=== PATIENT | female | born 1985 ===

== ENCOUNTER 2018-02-04 05:44 | Inpatient (IN) | payer MEDICAID ==
[2018-02-04] MEDS ORDERED: Ondansetron 4 MG/2 ML SDV IVPUSH PRN ×3 (06:34→22:02)
[2018-02-04] MEDS ORDERED: Lactated Ringers 1,000 ML IV SCH ×3 (06:45→20:45)
[2018-02-04] MEDS: Terbutaline 1 MG/ML SDV SUBCUT SCH ×2 (08:18→12:17)
[2018-02-04] MEDS ORDERED: cefOXitin 2 GM in Premix Bag 1 BAG IV ONE (09:17)
--- NOTE | 2018-02-04 10:46 | PCM.SN ---
- Free Text/Narrative Note: 32-year-old PATRICIA 02/24/18 estimated gestational age 37 weeks 1 day. Patient presented to labor and delivery complaining of contractions and nausea and vomiting. Initial examination cervix was unchanged from exam in the clinic /soft/posterior/vertex -3. Patient given IV hydration by mouth hydration will give regular diet. Urinalysis revealed many bacteria given Mefoxin 2 g IV and will continue him Macrobid 100 mg by mouth twice a day at home for 10 days prescription sent to [facility] nonstress test reactive cervix has remained unchanged contractions have spaced out. Patient lives an Outing will be observed in labor and delivery for short while longer in an attempt to avoid her having to return immediately upon getting home. Patient to keep her appointment with Dr. Hines next week and with me the following week. Return to labor and delivery if any problems or concerns. Z3A.37 UTI O23.43 NST 53795 L&D visit [id number]
[2018-02-04] MEDS: Phenazopyridine 95 MG Tab PO SCH (11:13)
--- NOTE | 2018-02-04 14:55 | US ---
Biophysical profile: Multiple real-time images were obtained. Comparison: Previous obstetrical ultrasounds are available, most recent exam of 10/07/17. Dates: LMP: LMP given as 05/20/17, PATRICIA 02/24/18, gestational age 37 weeks 1 day Current ultrasound: PATRICIA 02/26/18, gestational age 36 weeks 6 day Earliest ultrasound (07/28/17): PATRICIA 02/19/18, gestational age 37 weeks 6 days presentation: Cephalic Placenta: Anterior Amniotic fluid: BILL 14.6 cm Measurements: BPD: 9.10 cm - 36 weeks 6 days Head circumference: 31.58 cm - 35 weeks 3 days Abdominal circumference: 33.74 cm - 37 weeks 5 days Femur length: 7.26 cm - 37 weeks 1 day Estimated weight: 3102 g (6 lbs. 15 oz.), estimated weight 46th percentile for age by LMP Heart rate: 147 BPM Cervical length: Not seen, not measured Growth curves: None were prepared Biophysical profile: movement 2, breathing movement 0, tone 2, amniotic fluid volume 2 Impression: 1. Single intrauterine fetus in cephalic in presentation. Dates as noted above. 2. 6 out of 8 on biophysical profile. Diagnostic code #5
--- NOTE | 2018-02-04 15:19 | PCM.LDHP ---
L&D History of Present Illness - General Date of Service: 02/04/18 Admit Problem/Dx: Patient Status Order with Admit Dx/Problem 02/04/18 06:35 Patient Status [ADT] Routine Admission Diagnosis/Problem Admission Diagnosis/Problem Source of Information: Patient History Limitations: Reports: No Limitations - History of Present Illness Introduction:: 32 y/o PATRICIA 02/24/2018 EGA 37w1d presented to L&D early this morning c/o contractions. Cervix was unchanged from exam in the clinic earlier this week when seen on 02/03/18 cervix is 1 cm dilated 20% effaced soft posterior vertex - 3 station. Patient had initially what I read as reactive nonstress test, patient lives an [place] as precaution patient On extended OB check. Later in the morning and early afternoon patient had several decelerations that lasted between 3-5 minutes still with good [id number] variability and an occasional variable deceleration. Biophysical profile was ordered and returned as 6 out of 8 with 0 for breathing movement. I talked with Dr. Gage, and we reviewed her OB trace view tracings. Patient continues to have contractions every 8-10 minutes, decreased in frequency from when patient presented to labor and delivery. The urinalysis report revealed many bacteria. Patient was treated with Mefoxin intravenously. And will now be placed on Macrobid 100 mg by mouth twice a day her group B strep is negative. Dr. Gage and I both agreed that patient should remain in labor and delivery with monitoring IV hydration which was begun on patient presented. Regular diet and reevaluate patient as indicated. Cervix has remained unchanged at 1 cm, 20% effaced, soft, posterior, vertex -3. Blood pressure on clinic visit 02/03/18 was 106/68. Blood type is O+, antibody screen negative. On 07/28/17 hemoglobin hematocrit 12.5/36.0. Platelets 270,000. Pap smear -. Rubella titer immune, serology nonreactive, urine culture no growth after 2 days. Hepatitis B surface antigen and HIV were negative. Initial ultrasound 07/28 at 10 weeks 4 days estimated gestational age placed estimated due date of . The original last menstrual period PATRICIA of 02/24/18 has been kept at this time. Ultrasound obtained on 10/07/17 at 21 weeks 0 days estimated gestational age mobile presentation and anterior placenta previa. pola 11.8 three-vessel cord present. gc and chlamydia were negative on 07/28/17. on 12/14/17 hemoglobin hematocrit 11.5/33.9 platelets 237,001 hour ob glucose screen 141. three-hour glucose tolerance test obtained on 12/20/17 fasting of 77 1 hour 98-95 3 hour of 87. group b strep negative on 01/27/18. After considering the evaluation and discussing patient, patient will be placed on observation status continuous external monitoring and IV hydration regular diet and reevaluation as indicated. I talked with patient's and patient's mother and all in agreement with staying at the hospital and they understand that Dr. Baker assuming call. Improves with: Reports: None Worsens with: Reports: None Associated Symptoms: Reports: N - Related Data Allergies/Adverse Reactions: Allergies Allergy/AdvReac Type Severity Reaction Status Date / Time No Known Allergies Allergy Verified 02/04/18 06:34 Home Medications: Home Meds Nitrofurantoin Monohyd/M-Cryst [Macrobid 100 mg Capsule] 100 mg PO BID #20 capsule 02/04/18 [Rx] Past Medical History : 2 Para: 0 (0010) H&P Review of Systems - Review of Systems: Review Of Systems: See Below General: Reports: No Symptoms HEENT: Reports: No Symptoms Pulmonary: Reports: No Symptoms Cardiovascular: Reports: No Symptoms Gastrointestinal: Reports: No Symptoms Genitourinary: Reports: Dysuria, Frequency, Pain (Sharp stabbing pain with urination.) Musculoskeletal: Reports: No Symptoms Skin: Reports: No Symptoms Psychiatric: Reports: No Symptoms Neurological: Reports: No Symptoms Hematologic/Lymphatic: Reports: No Symptoms Immunologic: Reports: No Symptoms L&D Exam - Exam Exam: See Below - Vital Signs Vital Signs: Last Vital Signs Temp 97.8 F 02/04/18 06:35 Pulse 85 02/04/18 06:35 Resp 15 02/04/18 06:35 BP 117/85 02/04/18 06:35 Pulse Ox Weight: 177 lb - OB Specific Fundal Height In cm: 37 Contraction Duration (sec): 60-120 Contraction Frequency (min): 5-10 Contraction Intensity: Mild to Moderate Movement: Active Heart Tones: Present Heart Tones per Min: 140 Heart Rate (FHR) Variability: Moderate (6-25 bmp) Presentation: Vertex - Kendall Score Kendall Score Cervix Position: Posterior Kendall Score Consistency: Soft Kendall Score Effacement: 0-30% Kendall Score Dilation: 1-2 cm Kendall Score 's Station: -3 Kendall Score Total: 3 - Exam General: Alert, Oriented HEENT: Conjunctiva Clear, Mucosa Moist & [place], PERRLA Neck: Supple, Trachea Midline Lungs: Clear to Auscultation, Normal Respiratory Effort Cardiovascular: Regular Rate, Regular Rhythm GI/Abdominal Exam: Normal Bowel Sounds, Soft, Non-Tender Genitourinary: Normal external exam, Normal bimanual exam Extremities: Normal Inspection, Normal Range of Motion, Non-Tender, No Pedal Edema, Normal Capillary Refill Skin: Warm, Dry, Intact Neurological: Cranial Nerves Intact, Reflexes Equal Bilateral Psychiatric: Alert, Normal Affect, Normal Mood - Patient Data Lab Results Last 24 hrs: Laboratory Results - last 24 hr 02/04/18 02/04/18 Range/Units 06:50 06:50 WBC 22.12 H (3.98-10.04) K/mm3 RBC 4.36 (3.98-5.22) M/mm3 Hgb 13.2 (11.2-15.7) gm/L Hct 38.0 (34.1-44.9) % MCV 87.2 (79.4-94.8) fl MCH 30.3 (25.6-32.2) pg MCHC 34.7 (32.2-35.5) g/dl RDW Std Deviation 38.8 (36.4-46.3) fL Plt Count 252 (182-369) K/mm3 MPV 10.6 (9.4-12.3) fl Neut % (Auto) 89.3 H (34.0-71.1) % Lymph % (Auto) 6.8 L (19.3-51.7) % [place] % (Auto) 3.3 L (4.7-12.5) % Eos % (Auto) 0 L (0.7-5.8) Baso % (Auto) 0.1 (0.1-1.2) % Neut # (Auto) 19.76 H (1.56-6.13) K/mm3 Lymph # (Auto) 1.51 (1.18-3.74) K/mm3 [place] # (Auto) 0.73 H (0.24-0.36) K/mm3 Eos # (Auto) 0.00 L (0.04-0.36) K/mm3 Baso # (Auto) 0.02 (0.01-0.08) K/mm3 Manual Slide Review Abnormal smear Urine Color Yellow (Yellow) Urine Appearance Clear (Clear) Urine pH 7.0 (5.0-8.0) Ur Specific [place] 1.025 (1.005-1.030) Urine Protein 1+ H (Negative) Urine Glucose (UA) Negative (Negative) Urine Ketones 1+ H (Negative) Urine Occult Blood Negative (Negative) Urine Nitrite Negative (Negative) Urine Bilirubin Negative (Negative) Urine Urobilinogen 0.2 (0.2-1.0) Ur Leukocyte Esterase 1+ H (Negative) Urine RBC Not seen (0-5) /hpf Urine WBC 0-5 (0-5) /hpf Ur Epithelial Cells 0-5 (0-5) /hpf Urine Bacteria Many H (FEW) /hpf Urine Mucus Few (FEW) /hpf Result Diagrams: 02/04/18 06:50 - Problem List (1) 37 weeks gestation of SNOMED Code(s): 54183364 ICD Code: Z3A.37 - 37 WEEKS GESTATION OF Status: Acute Current Visit: Yes (2) UTI (urinary tract infection) in in third trimester SNOMED Code(s): 119857066, 889080744 ICD Code: O23.43 - UNSP INFCT OF URINARY TRACT IN , THIRD TRIMESTER Status: Acute Current Visit: Yes (3) Irregular contractions SNOMED Code(s): 37644338 ICD Code: O62.2 - OTHER UTERINE INERTIA Status: Acute Current Visit: Yes Problem List Initiated/Reviewed/Updated: No Orders Last 24hrs: Active Orders 24 hr Category Date Time Status Patient Status [ADT] Routine ADT 02/04/18 06:35 Active Non Stress Test [RC] PER UNIT ROUTINE Care 02/04/18 06:35 Active Ready for Discharge [RC] PER UNIT ROUTINE Care 02/04/18 12:20 Active Vital Signs [RC] PER UNIT ROUTINE Care 02/04/18 06:35 Active Regular Diet [DIET] Diet 05/11/18 Lunch Active CULTURE URINE [RM] Routine Lab 02/04/18 06:50 Received Lactated Ringers [Ringers, Lactated] 1,000 ml Med 02/04/18 07:45 Active IV .ONCE Ondansetron [Zofran] Med 02/04/18 06:34 Active 4 mg IVPUSH Q4H PRN Phenazopyridine [Urinary Pain Relief] Med 02/04/18 13:00 Active 190 mg PO TIDPC Resuscitation Status Routine Resus Stat 02/04/18 06:34 Ordered Medication Orders Lactated Ringer's (Ringers, Lactated) 1,000 mls @ 125 mls/hr IV .ONCE GASTON Last Infusion: 02/04/18 12:15 Dose: 0 mls/hr Admin: 02/04/18 09:03 Dose: 125 mls/hr Ondansetron HCl (Zofran) 4 mg IVPUSH Q4H PRN PRN Reason: Nausea/Vomiting Phenazopyridine HCl (Urinary Pain Relief) 190 mg PO TIDPC G[place]ON Last Admin: 02/04/18 11:13 Dose: 190 mg Assessment/Plan Comment:: Keep patient in labor and delivery antepartum on observation status.
[2018-02-04] MEDS: Lactated Ringers 1,000 ML IV SCH ×2 (16:00→19:58)
--- NOTE | 2018-02-04 17:27 | PCM.SN ---
- Free Text/Narrative Note: S- Patient increasingly uncomfortable with contractions. Some bloody show. O- overall reassuring FHT however two additional 1 minute decelerations FHT 140s, reactive Myton - q 4-10 minutes Cervix very soft and posterior, unable to fully reach to assess dilation Speculum placed Garcia bulb passed through cervix without difficulty Inflated to 50 mL A- Given contractions and occasional spontaneous decelerations no need for immediate however would recommend induction at this time. P- garcia bulb placed. Will defer cytotec or pitocin at this time. Once garcia out will initiate pitocin.
[2018-02-04] MEDS ORDERED: Bupivacaine 0.25% 10 ML SDV ONE (18:00)
[2018-02-04] MEDS ORDERED: ePHEDrine 50 MG/ML SDV IVPUSH PRN ×2 (19:13→22:08)
[2018-02-04] MEDS ORDERED: fentaNYL 100 MCG/2 ML SDV EPIDUR PRN (19:13)
[2018-02-04] MEDS ORDERED: diphenhydrAMINE 50 MG/ML SDV IVPUSH PRN ×3 (19:13→22:08)
[2018-02-04] MEDS ORDERED: Bupivacaine/fentaNYL/NS 100 ML Bag EPIDUR SCH (19:15)
--- NOTE | 2018-02-04 19:30 | PCM.SN ---
- Free Text/Narrative Note: S- Called by nurse for deceleration to the 90s. By my arrival has recovered. Luke bulb removed. Pt more uncomfortable with contractions. O- Afebrile FHT- 140s, good variability, occasional decelerations but not improved [place] - q3-5 minutes 4/80/-2 AROM thick meconium A - More uncomfortable. Occasional decelerations with good recovery p - Patient desires epidural. Will get that placed. If good cervical change and no significant decelerations can proceed with induction. Otherwise patient understands possibility of need for
[2018-02-04] MEDS ORDERED: Oxytocin/Lactated Ringers 10 UNIT/1,000 ML BAG IV ONE (20:06)
--- NOTE | 2018-02-04 20:14 | PCM.PREANE ---
Preanesthetic Assessment - Procedure Proposed Procedure: PINO - Anesthesia/Transfusion/Family Hx Anesthesia History: Prior Anesthesia Without Reaction Family History of Anesthesia Reaction: No Transfusion History: No Prior Transfusion(s) Intubation History: Unknown - Review of Systems General: No Symptoms Pulmonary: No Symptoms Cardiovascular: No Symptoms Gastrointestinal: No Symptoms Neurological: No Symptoms Other: Reports: Thyroid Problems (hypothyroidism) - Physical Assessment NPO Status Date: 02/04/18 NPO Status Time: 17:00 Pulse: 91 O2 Sat by Pulse Oximetry: 98 Respiratory Rate: 18 Vital Signs: Last Vital Signs Temp 36.9 C 02/04/18 16:50 Pulse 91 02/04/18 16:30 Resp 18 02/04/18 16:50 BP 119/74 02/04/18 16:50 Pulse Ox 98 02/04/18 16:50 Height: 1.57 m Weight: 80.286 kg ASA Class: 2 Mental Status: Alert & Oriented x3 Airway Class: Mallampati = 1 Dentition: Reports: Normal Dentition Thyro-Mental Finger Breadths: 3 Mouth Opening Finger Breadths: 3 ROM/Head Extension: Full Lungs: Clear to Auscultation, Normal Respiratory Effort Cardiovascular: Regular Rate, Regular Rhythm - Lab Values: Laboratory Last Values WBC 22.12 K/mm3 (3.98-10.04) H 02/04/18 06:50 RBC 4.36 M/mm3 (3.98-5.22) 02/04/18 06:50 Hgb 13.2 gm/L (11.2-15.7) 02/04/18 06:50 Hct 38.0 % (34.1-44.9) 02/04/18 06:50 MCV 87.2 fl (79.4-94.8) 02/04/18 06:50 MCH 30.3 pg (25.6-32.2) 02/04/18 06:50 MCHC 34.7 g/dl (32.2-35.5) 02/04/18 06:50 RDW Std Deviation 38.8 fL (36.4-46.3) 02/04/18 06:50 Plt Count 252 K/mm3 (182-369) 02/04/18 06:50 MPV 10.6 fl (9.4-12.3) 02/04/18 06:50 Neut % (Auto) 89.3 % (34.0-71.1) H 02/04/18 06:50 Lymph % (Auto) 6.8 % (19.3-51.7) L 02/04/18 06:50 [place] % (Auto) 3.3 % (4.7-12.5) L 02/04/18 06:50 Eos % (Auto) 0 (0.7-5.8) L 02/04/18 06:50 Baso % (Auto) 0.1 % (0.1-1.2) 02/04/18 06:50 Neut # (Auto) 19.76 K/mm3 (1.56-6.13) H 02/04/18 06:50 Lymph # (Auto) 1.51 K/mm3 (1.18-3.74) 02/04/18 06:50 [place] # (Auto) 0.73 K/mm3 (0.24-0.36) H 02/04/18 06:50 Eos # (Auto) 0.00 K/mm3 (0.04-0.36) L 02/04/18 06:50 Baso # (Auto) 0.02 K/mm3 (0.01-0.08) 02/04/18 06:50 Manual Slide Review Abnormal smear 02/04/18 06:50 Urine Color Yellow (Yellow) 02/04/18 06:50 Urine Appearance Clear (Clear) 02/04/18 06:50 Urine pH 7.0 (5.0-8.0) 02/04/18 06:50 Ur Specific [place] 1.025 (1.005-1.030) 02/04/18 06:50 Urine Protein 1+ (Negative) H 02/04/18 06:50 Urine Glucose (UA) Negative (Negative) 02/04/18 06:50 Urine Ketones 1+ (Negative) H 02/04/18 06:50 Urine Occult Blood Negative (Negative) 02/04/18 06:50 Urine Nitrite Negative (Negative) 02/04/18 06:50 Urine Bilirubin Negative (Negative) 02/04/18 06:50 Urine Urobilinogen 0.2 (0.2-1.0) 02/04/18 06:50 Ur Leukocyte Esterase 1+ (Negative) H 02/04/18 06:50 Urine RBC Not seen /hpf (0-5) 02/04/18 06:50 Urine WBC 0-5 /hpf (0-5) 02/04/18 06:50 Ur Epithelial Cells 0-5 /hpf (0-5) 02/04/18 06:50 Urine Bacteria Many /hpf (FEW) H 02/04/18 06:50 Urine Mucus Few /hpf (FEW) 02/04/18 06:50 Blood Type O POSITIVE 02/04/18 06:50 Gel Antibody Screen Negative 02/04/18 06:50 - Allergies Allergies/Adverse Reactions: Allergies Allergy/AdvReac Type Severity Reaction Status Date / Time No Known Allergies Allergy Verified 02/04/18 06:34 - Blood Blood Available: No Product(s) Available: None - Anesthesia Plan Pre-Op Medication Ordered: None - Acknowledgements Anesthesia Type Planned: Epidural Pt an Appropriate Candidate for the Planned Anesthesia: Yes Alternatives and Risks of Anesthesia Discussed w Pt/Guardian: Yes Pt/Guardian Understands and Agrees with Anesthesia Plan: Yes PreAnesthesia Questionnaire FELLER HAND History: Reports: Endocrine/Metabolic History: Reports: Hypothyroidism - Past Surgical History Female Surgical History: Reports: Breast Reconstruction, D&C - SUBSTANCE USE Smoking Status *Q: Never Smoker Second Hand Smoke Exposure: No Recreational Drug Use History: No - HOME MEDS Home Medications: Home Meds Levothyroxine 75 mcg PO ACBREAKFAST 02/04/18 [History] Nitrofurantoin Monohyd/M-Cryst [Macrobid 100 mg Capsule] 100 mg PO BID #20 capsule 02/04/18 [Rx] - CURRENT (IN HOUSE) MEDS Current Meds: Current Medications Diphenhydramine HCl (Benadryl) 25 mg IVPUSH Q6H PRN PRN Reason: Pruritis Ephedrine Sulfate (Ephedrine Sulfate) 5 mg IVPUSH ASDIRECTED PRN PRN Reason: Hypotension Fentanyl (Sublimaze) 100 mcg EPIDUR Q3H PRN PRN Reason: Pain Last Admin: 02/04/18 19:45 Dose: 100 mcg Fentanyl/Bupivacaine HCl (Fentanyl/Bupivacaine/Ns 2 Mcg-0.125% 100 Ml) 100 ml EPIDUR ASDIRECTED G[place]ON Last Admin: 02/04/18 19:46 Dose: 100 ml Hydroxyzine HCl (Atarax) 25 mg PO BEDTIME G[place]ON Lactated Ringer's (Ringers, Lactated) 1,000 mls @ 125 mls/hr IV ASDIRECTED [facility] Last Admin: 02/04/18 19:58 Dose: 125 mls/hr Nitrofurantoin Macrocrystals (Macrobid) 100 mg PO BID [facility] Ondansetron HCl (Zofran) 4 mg IVPUSH Q4H PRN PRN Reason: Nausea/Vomiting Ondansetron HCl (Zofran) 4 mg IVPUSH ONETIME PRN PRN Reason: Nausea/Vomiting Discontinued Medications Lactated Ringer's (Ringers, Lactated) 1,000 mls @ 500 mls/hr IV ASDIRECTED [facility] Stop: 02/04/18 08:44 Last Infusion: 02/04/18 12:15 Dose: Infused Lactated Ringer's (Ringers, Lactated) 1,000 mls @ 125 mls/hr IV .ONCE [facility] Last Infusion: 02/04/18 12:15 Dose: Infused Cefoxitin Sodium 2 gm/ Premix 50 mls @ 100 mls/hr IV ONETIME ONE Stop: 02/04/18 09:46 Last Infusion: 02/04/18 12:16 Dose: Infused Oxytocin/Lactated Ringer's (Pitocin In Lr 10 Units/1,000 Ml) Confirm Administered Dose 10 unit in 1,000 mls @ as directed IV .STK-MED ONE Stop: 02/04/18 20:07 Phenazopyridine HCl (Urinary Pain Relief) 190 mg PO TIDPC [facility] Last Admin: 02/04/18 11:13 Dose: 190 mg Terbutaline Sulfate (Brethine) 0.25 mg SUBCUT Q30M [facility] Stop: 02/04/18 07:46 Last Admin: 02/04/18 12:17 Dose: Not Given
[2018-02-04] MEDS ORDERED: Oxytocin/Lactated Ringers 10 UNIT/1,000 ML BAG IV SCH (20:15)
[2018-02-04] MEDS ORDERED: Oxytocin 10 Units/1 ML SDV ONE (20:43)
[2018-02-04] MEDS ORDERED: Ondansetron 4 MG/2 ML SDV ONE (20:43)
[2018-02-04] MEDS ORDERED: ceFAZolin 1 GM Vial ONE (20:44)
[2018-02-04] MEDS ORDERED: Sodium Chloride 0.9% 10 ML Syringe FLUSH PRN (20:44)
[2018-02-04] MEDS ORDERED: Lidocaine 2% with EPINEPHrine 1:200,000 20 ML SDV ONE (20:44)
[2018-02-04] MEDS ORDERED: Sodium Bicarbonate 8.4% 50 MEQ/50 ML SDV ONE (20:44)
[2018-02-04] MEDS ORDERED: Metoclopramide 10 MG/2 ML SDV IVPUSH ONE (20:44)
[2018-02-04] MEDS ORDERED: Citric Acid/Sodium Citrate Solution 30 ML Cup ONE (20:55)
[2018-02-04] MEDS ORDERED: Citric Acid/Sodium Citrate Solution 30 ML Cup PO ONE (20:56)
[2018-02-04] MEDS ORDERED: hydrOXYzine HCl 25 MG Tab PO SCH (21:00)
[2018-02-04] MEDS ORDERED: Nitrofurantoin Monohydrate/Macrocrystalline 100 MG Cap PO SCH (21:00)
[2018-02-04] MEDS ORDERED: Phenylephrine/Normal Saline 100 MCG/ML 10 ML Syringe ONE (21:13)
[2018-02-04] MEDS ORDERED: Meperidine PF 50 MG/ML Syringe ONE (21:38)
[2018-02-04] MEDS ORDERED: Morphine PF 10 MG/10 ML SDV ONE (21:39)
[2018-02-04] MEDS ORDERED: Ketorolac 30 MG/ML SDV ONE (21:45)
[2018-02-04] MEDS ORDERED: Ketorolac 30 MG/ML SDV IVPUSH SCH (22:00)
--- NOTE | 2018-02-04 22:00 | PCM.POSTAN ---
POST ANESTHESIA ASSESSMENT - MENTAL STATUS Mental Status: Alert, Oriented - VITAL SIGNS Pulse Rate: 95 SaO2: 100 Resp Rate: 17 Blood Pressure: 91/54 Temperature: 37.3 C - RESPIRATORY Respiratory Status: Respiratory Rate WNL, Airway Patent, O2 Saturation Stable, Supplemental Oxygen - CARDIOVASCULAR CV Status: Pulse Rate WNL, Blood Pressure Stable - GASTROINTESTINAL GI Status: No Symptoms - PAIN Pain Score: 0 - POST OP HYDRATION Hydration Status: Adequate & Stable
[2018-02-04] MEDS ORDERED: Meperidine PF 50 MG/ML Syringe IVPUSH PRN (22:02)
[2018-02-04] MEDS ORDERED: fentaNYL 100 MCG/2 ML SDV IVPUSH PRN (22:02)
[2018-02-04] MEDS ORDERED: Acetaminophen/HYDROcodone 325-5 MG Tab PO PRN (22:08)
[2018-02-04] MEDS ORDERED: Dextrose 5%-Lactated Ringers 1,000 ML IV SCH (22:08)
[2018-02-04] MEDS ORDERED: Naloxone 0.4 MG/ML SDV IVPUSH PRN (22:08)
[2018-02-04] MEDS ORDERED: Lanolin 100% Cream 7 GM Tube TOP PRN (22:08)
[2018-02-04] MEDS ORDERED: Docusate Sodium 100 MG Cap PO PRN (22:08)
--- NOTE | 2018-02-04 22:12 | PCM.OPNOTE ---
- General Post-Op/Procedure Note Date of Surgery/Procedure: 02/04/18 Operative Procedure(s): Primary low transverse section Findings: Viable male weight 6 lbs. 14 oz. Apgars 8/9, at 2125; normal uterus tubes and ovaries Pre Op Diagnosis: Nonreassuring monitoring Post-Op Diagnosis: Same Anesthesia Technique: Epidural Primary Surgeon: Shreya Gonzalez Anesthesia Provider: Ahmet Welch Plumbing Installer: Chris Avelar Jr Reason Plumbing Installer Was Necessary: Retraction, patient safety Fluid Replacement, Intraop: 400 Output, Urine Amount: 150 EBL in mLs: 1,000 Drain/Tube Comments:: Luke Complications: None Condition: Good Free Text/Narrative:: Intake & Output 02/04/18 02/04/18 02/04/18 06:59 14:59 22:59 Intake Total 1300 Balance 1300 After more decelerations in setting of thick meconium decision made to proceed to . The patient was taken to the operating room where epidural anesthesia was dosed to surgical levels without difficulty. The patient was prepped and draped in the usual sterile fashion in the dorsal supine position with a leftward tilt. A Pfannenstiel skin incision was made with the scalpel and carried through to the underlying layer of fascia. The fascia was incised in the midline and extended laterally using Suazo scissors. Deanna clamps were used to elevate the superior aspect of the fascial incision, which was elevated , and the underlying rectus muscles were dissected off bluntly and using Suazo scissors. Attention was then turned to the inferior aspect of the fascial incision, which in similar fashion was grasped with Deanna clamps, elevated, and the underlying rectus muscles were dissected off bluntly and using the suazo. The rectus muscles were dissected in the midline. The peritoneum was entered bluntly; this incision was extended superiorly and inferiorly with good visualization of the bladder. The bladder blade was inserted. The vesicouterine peritoneum was identified and entered sharply using Metzenbaum scissors. This incision was extended laterally and the bladder flap was created digitally. The bladder blade was reinserted. The lower uterine segment was incised in a transverse fashion using the scalpel and with digital traction. Clear fluid was noted. The infant was subsequently delivered by flexing the head to the incision. Body and shoulders followed without difficulty. The cord was clamped and cut. The was subsequently handed to the awaiting acid treater whose presence had been requested.. The placenta was delivered spontaneously intact with a three-vessel cord noted. The uterus was exteriorized and cleared of all clots and debris. The uterine incision was repaired in 2 layers using 0 monocryl. Hemostasis was visualized. Hemostasis was visualized bilaterally. The uterus was returned to the abdomen. The uterine incision was reexamined and it was noted to be hemostatic. The pelvis was copiously irrigated. The fascia was closed with 1 PDS suture, and the skin was closed with 3-0 monocryl. Sponge, lap, and instrument counts were correct x2. The patient was stable at the completion of the procedure and was subsequently transferred to the recovery room in stable condition.
[2018-02-04] MEDS ORDERED: Bupivacaine 0.5% 30 ML SDV ONE (22:15)
[2018-02-05] MEDS: Phenazopyridine 95 MG Tab PO SCH (01:26)
[2018-02-05] MEDS: Ketorolac 30 MG/ML SDV IVPUSH SCH ×3 (04:19→15:51)
[2018-02-05] MEDS: Levothyroxine 75 MCG Tab PO SCH (06:08)
--- NOTE | 2018-02-05 07:26 | PCM.PNPP ---
- General Info Date of Service: 02/05/18 Functional Status: Reports: Pain Controlled - Review of Systems General: Reports: No Symptoms HEENT: Reports: No Symptoms Pulmonary: Reports: No Symptoms Cardiovascular: Reports: No Symptoms Gastrointestinal: Reports: No Symptoms Genitourinary: Reports: No Symptoms Musculoskeletal: Reports: No Symptoms Skin: Reports: No Symptoms Neurological: Reports: No Symptoms Psychiatric: Reports: No Symptoms - General Info Date of Service: 02/05/18 - Patient Data Vital Signs - Most Recent: Last Vital Signs Temp 36.4 C 02/05/18 04:31 Pulse 90 02/05/18 04:31 Resp 16 02/05/18 07:00 BP 98/71 02/05/18 04:31 Pulse Ox 98 02/05/18 07:00 Weight - Most Recent: 80.286 kg I&O - Last 24 Hours: Intake & Output 02/04/18 02/05/18 02/05/18 22:59 06:59 14:59 Intake Total 2150 1250 Output Total 275 525 Balance 1875 725 Lab Results - Last 24 Hours: Laboratory Results - last 24 hr 02/04/18 02/04/18 02/04/18 Range/Units 06:50 06:50 06:50 WBC (3.98-10.04) K/mm3 RBC (3.98-5.22) M/mm3 Hgb (11.2-15.7) gm/L Hct (34.1-44.9) % MCV (79.4-94.8) fl MCH (25.6-32.2) pg MCHC (32.2-35.5) g/dl RDW Std Deviation (36.4-46.3) fL Plt Count (182-369) K/mm3 MPV (9.4-12.3) fl Neut % (Auto) (34.0-71.1) % Lymph % (Auto) (19.3-51.7) % S[place]ent % (Auto) (4.7-12.5) % Eos % (Auto) (0.7-5.8) Baso % (Auto) (0.1-1.2) % Neut # (Auto) (1.56-6.13) K/mm3 Lymph # (Auto) (1.18-3.74) K/mm3 S[place]ent # (Auto) (0.24-0.36) K/mm3 Eos # (Auto) (0.04-0.36) K/mm3 Baso # (Auto) (0.01-0.08) K/mm3 Manual Slide Review Abnormal smear Urine RBC Not seen (0-5) /hpf Urine WBC 0-5 (0-5) /hpf Ur Epithelial Cells 0-5 (0-5) /hpf Urine Bacteria Many H (FEW) /hpf Urine Mucus Few (FEW) /hpf Blood Type O POSITIVE Gel Antibody Screen Negative 02/05/18 Range/Units 06:18 WBC 19.02 H (3.98-10.04) K/mm3 RBC 3.28 L (3.98-5.22) M/mm3 Hgb 9.9 L (11.2-15.7) gm/L Hct 29.5 L (34.1-44.9) % MCV 89.9 (79.4-94.8) fl MCH 30.2 (25.6-32.2) pg MCHC 33.6 (32.2-35.5) g/dl RDW Std Deviation 39.0 (36.4-46.3) fL Plt Count 199 (182-369) K/mm3 MPV 10.0 (9.4-12.3) fl Neut % (Auto) 77.3 H (34.0-71.1) % Lymph % (Auto) 11.5 L (19.3-51.7) % Sargent % (Auto) 10.6 (4.7-12.5) % Eos % (Auto) 0.1 L (0.7-5.8) Baso % (Auto) 0.1 (0.1-1.2) % Neut # (Auto) 14.72 H (1.56-6.13) K/mm3 Lymph # (Auto) 2.19 (1.18-3.74) K/mm3 Sargent # (Auto) 2.01 H (0.24-0.36) K/mm3 Eos # (Auto) 0.02 L (0.04-0.36) K/mm3 Baso # (Auto) 0.01 (0.01-0.08) K/mm3 Manual Slide Review Urine RBC (0-5) /hpf Urine WBC (0-5) /hpf Ur Epithelial Cells (0-5) /hpf Urine Bacteria (FEW) /hpf Urine Mucus (FEW) /hpf Blood Type Gel Antibody Screen Med Orders - Current: Current Medications Hydrocodone Bitart/Acetaminophen ([place] 325-5 Mg) 2 tab PO Q6H PRN PRN Reason: Pain (severe 7-10) Hydrocodone Bitart/Acetaminophen ([place] 325-5 Mg) 1 tab PO Q6H PRN PRN Reason: Pain (moderate 4-6) Diphenhydramine HCl (Benadryl) 25 mg IVPUSH Q6H PRN PRN Reason: Pruritis Diphenhydramine HCl (Benadryl) 25 mg IVPUSH Q6H PRN PRN Reason: Itching or Nausea Docusate Sodium (Colace) 100 mg PO Q12H PRN PRN Reason: Constipation Emollient Ointment (Lansinoh Hpa) 0 gm TOP ASDIRECTED PRN PRN Reason: Sore Nipples Ephedrine Sulfate (Ephedrine Sulfate) 5 mg IVPUSH SEECOMMENT PRN PRN Reason: Other Fentanyl (Sublimaze) 50 mcg IVPUSH Q5M PRN PRN Reason: Pain Ibuprofen (Motrin) 600 mg PO Q6H PRN PRN Reason: mild pain or fever Ketorolac Tromethamine (Toradol) 30 mg IVPUSH Q6H [facility] Stop: 02/05/18 16:01 Last Admin: 02/05/18 04:19 Dose: 30 mg Levothyroxine Sodium (Levothyroxine) 75 mcg PO ACBREAKFAST [facility] Last Admin: 02/05/18 06:08 Dose: Not Given Meperidine HCl (Demerol) 12.5 mg IVPUSH ONETIME PRN PRN Reason: Shivering Naloxone HCl (Narcan) 0.1 mg IVPUSH SEECOMMENT PRN PRN Reason: Respiratory Depression Nitrofurantoin Macrocrystals (Macrobid) 100 mg PO BID [facility] Ondansetron HCl (Zofran) 4 mg IVPUSH ONETIME PRN PRN Reason: Nausea/Vomiting Discontinued Medications Bupivacaine HCl (Marcaine 0.5%) Confirm Administered Dose 30 ml .ROUTE .STK-MED ONE Stop: 02/04/18 22:16 Last Admin: 02/04/18 21:22 Dose: 20 ml Cefazolin Sodium (Ancef) Confirm Administered Dose 2 gm .ROUTE .STK-MED ONE Stop: 02/04/18 20:45 Citric Acid/Sodium Citrate (Bicitra Solution) 30 ml PO ONETIME ONE Stop: 02/04/18 20:57 Last Admin: 02/04/18 20:59 Dose: 30 ml Citric Acid/Sodium Citrate (Bicitra Solution) Confirm Administered Dose 30 ml .ROUTE .STK-MED ONE Stop: 02/04/18 20:56 Last Admin: 02/05/18 01:27 Dose: Not Given Diphenhydramine HCl (Benadryl) 25 mg IVPUSH Q6H PRN PRN Reason: Pruritis Ephedrine Sulfate (Ephedrine Sulfate) 5 mg IVPUSH ASDIRECTED PRN PRN Reason: Hypotension Fentanyl (Sublimaze) 100 mcg EPIDUR Q3H PRN PRN Reason: Pain Last Admin: 02/04/18 19:45 Dose: 100 mcg Fentanyl/Bupivacaine HCl (Fentanyl/Bupivacaine/Ns 2 Mcg-0.125% 100 Ml) 100 ml EPIDUR ASDIRECTED [facility] Last Admin: 02/04/18 19:46 Dose: 100 ml Hydroxyzine HCl (Atarax) 25 mg PO BEDTIME [facility] Last Admin: 02/05/18 01:27 Dose: Not Given Lactated Ringer's (Ringers, Lactated) 1,000 mls @ 500 mls/hr IV ASDIRECTED [facility] Stop: 02/04/18 08:44 Last Infusion: 02/04/18 12:15 Dose: Infused Lactated Ringer's (Ringers, Lactated) 1,000 mls @ 125 mls/hr IV .ONCE [facility] Last Infusion: 02/04/18 12:15 Dose: Infused Cefoxitin Sodium 2 gm/ Premix 50 mls @ 100 mls/hr IV ONETIME ONE Stop: 02/04/18 09:46 Last Infusion: 02/04/18 12:16 Dose: Infused Lactated Ringer's (Ringers, Lactated) 1,000 mls @ 125 mls/hr IV ASDIRECTED [facility] Last Admin: 02/04/18 19:58 Dose: 125 mls/hr Oxytocin/Lactated Ringer's (Pitocin In Lr 10 Units/1,000 Ml) Confirm Administered Dose 10 unit in 1,000 mls @ as directed IV .STK-MED ONE Stop: 02/04/18 20:07 Last Admin: 02/05/18 01:26 Dose: Not Given Oxytocin/Lactated Ringer's (Pitocin In Lr 10 Units/1,000 Ml) 10 unit in 1,000 mls @ 12 mls/hr IV TITRATE [facility]; Protocol Last Titration: 02/04/18 20:30 Dose: 0 munits/min, 0 mls/hr Lactated Ringer's (Ringers, Lactated) 1,000 mls @ 125 mls/hr IV ASDIRECTED [facility] Dextrose/Lactated Ringer's (Dextrose 5%-Lactated Ringers) 1,000 mls @ 125 mls/ hr IV ASDIRECTED [facility] Stop: 02/05/18 06:07 Last Admin: 02/04/18 23:32 Dose: 125 mls/hr Ibuprofen (Motrin) 600 mg PO Q6H PRN PRN Reason: mild pain or fever Ketorolac Tromethamine (Toradol) Confirm Administered Dose 30 mg .ROUTE .STK- MED ONE Stop: 02/04/18 21:46 Ketorolac Tromethamine (Toradol) 30 mg IVPUSH Q6H [facility] Stop: 02/05/18 10:01 Last Admin: 02/05/18 01:28 Dose: Not Given Lidocaine/Epinephrine (Xylocaine-Mpf 2%-Epi 1:200,000) Confirm Administered Dose 20 ml .ROUTE .STK-MED ONE Stop: 02/04/18 20:45 Meperidine HCl (Demerol) Confirm Administered Dose 50 mg .ROUTE .STK-MED ONE Stop: 02/04/18 21:39 Metoclopramide HCl (Reglan) 10 mg IVPUSH ONETIME ONE Stop: 02/04/18 20:45 Last Admin: 02/04/18 20:59 Dose: 10 mg Morphine Sulfate (Duramorph Pf) Confirm Administered Dose 10 mg .ROUTE .STK-MED ONE Stop: 02/04/18 21:40 Nitrofurantoin Macrocrystals (Macrobid) 100 mg PO BID [facility] Last Admin: 02/05/18 01:27 Dose: Not Given Ondansetron HCl (Zofran) 4 mg IVPUSH Q4H PRN PRN Reason: Nausea/Vomiting Ondansetron HCl (Zofran) 4 mg IVPUSH ONETIME PRN PRN Reason: Nausea/Vomiting Ondansetron HCl (Zofran) Confirm Administered Dose 4 mg .ROUTE .STK-MED ONE Stop: 02/04/18 20:44 Oxytocin (Pitocin) Confirm Administered Dose 10 unit .ROUTE .STK-MED ONE Stop: 02/04/18 20:44 Phenazopyridine HCl (Urinary Pain Relief) 190 mg PO TIDPC [facility] Last Admin: 02/05/18 01:26 Dose: Not Given Phenylephrine HCl (Phenylephrine In Ns 100 Mcg/Ml) Confirm Administered Dose 1 mg .ROUTE .STK-MED ONE Stop: 02/04/18 21:14 Sodium Bicarbonate (Sodium Bicarbonate 8.4%) Confirm Administered Dose 50 meq .ROUTE .STK-MED ONE Stop: 02/04/18 20:45 Sodium Chloride (Saline Flush) 10 ml FLUSH ASDIRECTED PRN PRN Reason: Keep Vein Open Terbutaline Sulfate (Brethine) 0.25 mg SUBCUT Q30M [facility] Stop: 02/04/18 07:46 Last Admin: 02/04/18 12:17 Dose: Not Given - Interaction Infant Disposition, : [place] to Nursery - Recovery Exam Fundal Tone: Firm Fundal Level: At Umbilicus Fundal Placement: Midline Lochia Amount: Scant Lochia Color: Rubra/Red Perineum Description: Intact, Minimal Bruising/Swelling Bladder Status: Indwelling Catheter in Place Urinary Elimination: Indwelling Catheter - Exam General: Alert, Oriented HEENT: Pupils Equal Neck: Supple Lungs: Clear to Auscultation, Normal Respiratory Effort Cardiovascular: Regular Rate, Regular Rhythm GI/Abdominal Exam: Normal Bowel Sounds, Soft, Non-Tender, No Organomegaly, No Distention, No Abnormal Bruit, No Mass, Pelvis Stable Extremities: Normal Inspection, Normal Range of Motion, Non-Tender, No Pedal Edema, Normal Capillary Refill Skin: Warm, Dry, Intact Wound/Incisions: Healing Well Neurological: No New Focal Deficit Psy/Mental Status: Alert, Normal Affect, Normal Mood - Problem List & Annotations (1) 37 weeks gestation of SNOMED Code(s): 93689402 Code(s): Z3A.37 - 37 WEEKS GESTATION OF Status: Acute Current Visit: Yes (2) UTI (urinary tract infection) in in third trimester SNOMED Code(s): 027867493, 140871371 Code(s): O23.43 - UNSP INFCT OF URINARY TRACT IN , THIRD TRIMESTER Status: Acute Current Visit: Yes - Problem List Review Problem List Initiated/Reviewed/Updated: Yes - My Orders Last 24 Hours: My Active Orders 02/04/18 20:44 Heart Tones [RC] PER UNIT ROUTINE Vital Signs [RC] PFP 02/04/18 20:45 Peripheral IV Care [RC] Q2HR 02/04/18 22:08 Communication Order [RC] PER UNIT ROUTINE Communication Order [RC] PER UNIT ROUTINE Communication Order [RC] PER UNIT ROUTINE Notify Provider Intake and Out [RC] ASDIRECTED Acetaminophen/HYDROcodone [[place]ship 325-5 MG] 1 tab PO Q6H PRN Acetaminophen/HYDROcodone [[place] 325-5 MG] 2 tab PO Q6H PRN Docusate Sodium [Colace] 100 mg PO Q12H PRN Lanolin [Lansinoh HPA] See Dose Instructions TOP ASDIRECTED PRN Naloxone [Narcan] 0.1 mg IVPUSH SEECOMMENT PRN diphenhydrAMINE [Benadryl] 25 mg IVPUSH Q6H PRN ePHEDrine [ePHEDrine Sulfate] 5 mg IVPUSH SEECOMMENT PRN Assess Lochia [WOMSER] Per Unit Routine Assess Uterine Involution [WOMSER] Per Unit Routine Medication Administration Instruction [OM.PC] Routine 02/04/18 Breakfast Regular Diet [DIET] 02/05/18 04:00 Ketorolac [Toradol] 30 mg IVPUSH Q6H 02/05/18 05:55 CULTURE URINE [RM] Routine 02/05/18 06:00 Levothyroxine 75 mcg PO ACBREAKFAST 02/05/18 06:18 CBC WITH AUTO DIFF [HEME] AM 02/05/18 09:00 Nitrofurantoin Sargent/Macrocryst [Macrobid] 100 mg PO BID 02/05/18 21:59 Urinary Catheter Removal [RC] Per Unit Routine 02/05/18 22:00 Ibuprofen [Motrin] 600 mg PO Q6H PRN - Assessment Assessment:: POD1 from for NRFHT and thick meconium Doing well. Luke out later today. Encourage ambulation and breast feeding. UTI - change to keflex - Plan Plan:: Keep patient in labor and delivery antepartum on observation status.
[2018-02-05] MEDS ORDERED: Nitrofurantoin Monohydrate/Macrocrystalline 100 MG Cap PO SCH (09:00)
[2018-02-05] MEDS: Cephalexin 500 MG Cap PO SCH ×3 (10:13→20:30)
[2018-02-05] MEDS ORDERED: Ibuprofen 600 MG Tab PO PRN ×2 (16:00→22:00)
[2018-02-05] MEDS: Acetaminophen/HYDROcodone 325-5 MG Tab PO PRN (18:44)
--- NOTE | 2018-02-05 21:27 | PCM48HPAN ---
Post Anesthesia Note - EVALUATION WITHIN 48HRS OF ANESTHETIC Vital Signs in Normal Range: Yes Patient Participated in Evaluation: Yes Respiratory Function Stable: Yes Airway Patent: Yes Cardiovascular Function Stable: Yes Hydration Status Stable: Yes Pain Control Satisfactory: Yes Nausea and Vomiting Control Satisfactory: Yes Mental Status Recovered: Yes Pulse Rate: 90 Resp Rate: 14 Temperature: 36.4 C Blood Pressure: 105/71
[2018-02-06] MEDS: Acetaminophen/HYDROcodone 325-5 MG Tab PO PRN (02:18)
[2018-02-06] MEDS: Cephalexin 500 MG Cap PO SCH ×2 (02:18→11:06)
--- NOTE | 2018-02-06 07:27 | PCM.PNPP ---
- General Info Date of Service: 02/06/18 Subjective Update: POD2 from 1LTCS. Doing great. Pain controlled. Ambulating, voiding, has showered and is tolerating po's. Functional Status: Reports: Pain Controlled - Review of Systems General: Reports: No Symptoms HEENT: Reports: No Symptoms Pulmonary: Reports: No Symptoms Cardiovascular: Reports: No Symptoms Gastrointestinal: Reports: No Symptoms Genitourinary: Reports: No Symptoms Musculoskeletal: Reports: No Symptoms Skin: Reports: No Symptoms Neurological: Reports: No Symptoms Psychiatric: Reports: No Symptoms - General Info Date of Service: 02/06/18 - Patient Data Vital Signs - Most Recent: Last Vital Signs Temp 36.1 C 02/06/18 02:26 Pulse 90 02/05/18 21:27 Resp 16 02/06/18 02:26 BP 95/53 L 02/06/18 02:26 Pulse Ox 100 02/06/18 02:26 Weight - Most Recent: 80.286 kg I&O - Last 24 Hours: Intake & Output 02/05/18 02/06/18 02/06/18 22:59 06:59 14:59 Intake Total 890 950 Output Total 1000 Balance -110 950 Lab Results - Last 24 Hours: Laboratory Results - last 24 hr 02/05/18 Range/Units 06:18 Manual Slide Review Abnormal smear Med Orders - Current: Current Medications Hydrocodone Bitart/Acetaminophen ([place] 325-5 Mg) 2 tab PO Q6H PRN PRN Reason: Pain (severe 7-10) Last Admin: 02/06/18 02:18 Dose: 2 tab Hydrocodone Bitart/Acetaminophen ([place] 325-5 Mg) 1 tab PO Q6H PRN PRN Reason: Pain (moderate 4-6) Cephalexin (Keflex) 500 mg PO Q6HR [facility] Last Admin: 02/06/18 02:18 Dose: 500 mg Diphenhydramine HCl (Benadryl) 25 mg IVPUSH Q6H PRN PRN Reason: Pruritis Diphenhydramine HCl (Benadryl) 25 mg IVPUSH Q6H PRN PRN Reason: Itching or Nausea Docusate Sodium (Colace) 100 mg PO Q12H PRN PRN Reason: Constipation Last Admin: 02/06/18 02:18 Dose: 100 mg Emollient Ointment (Lansinoh Hpa) 0 gm TOP ASDIRECTED PRN PRN Reason: Sore Nipples Ephedrine Sulfate (Ephedrine Sulfate) 5 mg IVPUSH SEECOMMENT PRN PRN Reason: Other Fentanyl (Sublimaze) 50 mcg IVPUSH Q5M PRN PRN Reason: Pain Ibuprofen (Motrin) 600 mg PO Q6H PRN PRN Reason: mild pain or fever Last Admin: 02/05/18 22:03 Dose: 600 mg [facility]othyroxine [facility] ([facility]ine) [facility] Admin: 02/05/18 06:08 Dose: Not Given Meperidine HCl (Demerol) 12.5 mg IVPUSH ONETIME PRN PRN Reason: Shivering Naloxone HCl (Narcan) 0.1 mg IVPUSH SEECOMMENT PRN PRN Reason: Respiratory Depression Ondansetron HCl (Zofran) 4 mg IVPUSH ONETIME PRN PRN Reason: Nausea/Vomiting Discontinued Medications Bupivacaine HCl (Marcaine 0.5%) Confirm Administered Dose 30 ml .ROUTE .STK-MED ONE Stop: 02/04/18 22:16 Last Admin: 02/04/18 21:22 Dose: 20 ml Cefazolin Sodium (Ancef) Confirm Administered Dose 2 gm .ROUTE .STK-MED ONE Stop: 02/04/18 20:45 Citric Acid/Sodium Citrate (Bicitra Solution) 30 ml PO ONETIME ONE Stop: 02/04/18 20:57 Last Admin: 02/04/18 20:59 Dose: 30 ml Citric Acid/Sodium Citrate (Bicitra Solution) Confirm Administered Dose 30 ml .ROUTE .STK-MED ONE Stop: 02/04/18 20:56 Last Admin: 02/05/18 01:27 Dose: Not Given Diphenhydramine HCl (Benadryl) 25 mg IVPUSH Q6H PRN PRN Reason: Pruritis Ephedrine Sulfate (Ephedrine Sulfate) 5 mg IVPUSH ASDIRECTED PRN PRN Reason: Hypotension Fentanyl (Sublimaze) 100 mcg EPIDUR Q3H PRN PRN Reason: Pain Last Admin: 02/04/18 19:45 Dose: 100 mcg Fentanyl/Bupivacaine HCl (Fentanyl/Bupivacaine/Ns 2 Mcg-0.125% 100 Ml) 100 ml EPIDUR ASDIRECTED [facility] Last Admin: 02/04/18 19:46 Dose: 100 ml Hydroxyzine HCl (Atarax) 25 mg PO BEDTIME [facility] Last Admin: 02/05/18 01:27 Dose: Not Given Lactated Ringer's (Ringers, Lactated) 1,000 mls @ 500 mls/hr IV ASDIRECTED [facility] Stop: 02/04/18 08:44 Last Infusion: 02/04/18 12:15 Dose: Infused Lactated Ringer's (Ringers, Lactated) 1,000 mls @ 125 mls/hr IV .ONCE [facility] Last Infusion: 02/04/18 12:15 Dose: Infused Cefoxitin Sodium 2 gm/ Premix 50 mls @ 100 mls/hr IV ONETIME ONE Stop: 02/04/18 09:46 Last Infusion: 02/04/18 12:16 Dose: Infused Lactated Ringer's (Ringers, Lactated) 1,000 mls @ 125 mls/hr IV ASDIRECTED [facility] Last Admin: 02/04/18 19:58 Dose: 125 mls/hr Oxytocin/Lactated Ringer's (Pitocin In Lr 10 Units/1,000 Ml) Confirm Administered Dose 10 unit in 1,000 mls @ as directed IV .STK-MED ONE Stop: 02/04/18 20:07 Last Admin: 02/05/18 01:26 Dose: Not Given Oxytocin/Lactated Ringer's (Pitocin In Lr 10 Units/1,000 Ml) 10 unit in 1,000 mls @ 12 mls/hr IV TITRATE [facility]; Protocol Last Titration: 02/04/18 20:30 Dose: 0 munits/min, 0 mls/hr Lactated Ringer's (Ringers, Lactated) 1,000 mls @ 125 mls/hr IV ASDIRECTED [facility] Dextrose/Lactated Ringer's (Dextrose 5%-Lactated Ringers) 1,000 mls @ 125 mls/ hr IV ASDIRECTED [facility] Stop: 02/05/18 06:07 Last Admin: 02/04/18 23:32 Dose: 125 mls/hr Ibuprofen (Motrin) 600 mg PO Q6H PRN PRN Reason: mild pain or fever Ketorolac Tromethamine (Toradol) Confirm Administered Dose 30 mg .ROUTE .STK- MED ONE Stop: 02/04/18 21:46 Ketorolac Tromethamine (Toradol) 30 mg IVPUSH Q6H [facility] Stop: 02/05/18 10:01 Last Admin: 02/05/18 01:28 Dose: Not Given Ketorolac Tromethamine (Toradol) 30 mg IVPUSH Q6H [facility] Stop: 02/05/18 16:01 Last Admin: 02/05/18 15:51 Dose: 30 mg Lidocaine/Epinephrine (Xylocaine-Mpf 2%-Epi 1:200,000) Confirm Administered Dose 20 ml .ROUTE .STK-MED ONE Stop: 02/04/18 20:45 Meperidine HCl (Demerol) Confirm Administered Dose 50 mg .ROUTE .STK-MED ONE Stop: 02/04/18 21:39 Metoclopramide HCl (Reglan) 10 mg IVPUSH ONETIME ONE Stop: 02/04/18 20:45 Last Admin: 02/04/18 20:59 Dose: 10 mg Morphine Sulfate (Duramorph Pf) Confirm Administered Dose 10 mg .ROUTE .STK-MED ONE Stop: 02/04/18 21:40 Nitrofurantoin Macrocrystals (Macrobid) 100 mg PO BID [facility] Last Admin: 02/05/18 01:27 Dose: Not Given Nitrofurantoin Macrocrystals (Macrobid) 100 mg PO BID [facility] Ondansetron HCl (Zofran) 4 mg IVPUSH Q4H PRN PRN Reason: Nausea/Vomiting Ondansetron HCl (Zofran) 4 mg IVPUSH ONETIME PRN PRN Reason: Nausea/Vomiting Ondansetron HCl (Zofran) Confirm Administered Dose 4 mg .ROUTE .STK-MED ONE Stop: 02/04/18 20:44 Oxytocin (Pitocin) Confirm Administered Dose 10 unit .ROUTE .STK-MED ONE Stop: 02/04/18 20:44 Phenazopyridine HCl (Urinary Pain Relief) 190 mg PO TIDPC [facility] Last Admin: 02/05/18 01:26 Dose: Not Given Phenylephrine HCl (Phenylephrine In Ns 100 Mcg/Ml) Confirm Administered Dose 1 mg .ROUTE .STK-MED ONE Stop: 02/04/18 21:14 Sodium Bicarbonate (Sodium Bicarbonate 8.4%) Confirm Administered Dose 50 meq .ROUTE .STK-MED ONE Stop: 02/04/18 20:45 Sodium Chloride (Saline Flush) 10 ml FLUSH ASDIRECTED PRN PRN Reason: Keep Vein Open Terbutaline Sulfate (Brethine) 0.25 mg SUBCUT Q30M [facility] Stop: 02/04/18 07:46 Last Admin: 02/04/18 12:17 Dose: Not Given - Infant Interaction Disposition, : to Nursery - Recovery Exam Fundal Tone: Firm Fundal Level: 1 Fingerbreadths Below Umbilicus Fundal Placement: Midline Lochia Amount: Scant Lochia Color: Rubra/Red Perineum Description: Intact, Minimal Bruising/Swelling Episiotomy/Laceration: None Bladder Status: Voiding Urinary Elimination: Voided - Exam General: Alert, Oriented HEENT: Pupils Equal Neck: Supple Lungs: Clear to Auscultation, Normal Respiratory Effort Cardiovascular: Regular Rate, Regular Rhythm GI/Abdominal Exam: Normal Bowel Sounds, Soft, Non-Tender, No Organomegaly, No Distention, No Abnormal Bruit, No Mass, Pelvis Stable Extremities: Normal Inspection, Normal Range of Motion, Non-Tender, No Pedal Edema, Normal Capillary Refill Skin: Warm, Dry, Intact Wound/Incisions: Healing Well Neurological: No New Focal Deficit Psy/Mental Status: Alert, Normal Affect, Normal Mood - Problem List & Annotations (1) 37 weeks gestation of SNOMED Code(s): 84897007 Code(s): Z3A.37 - 37 WEEKS GESTATION OF Status: Acute Current Visit: Yes (2) UTI (urinary tract infection) in in third trimester SNOMED Code(s): 396574102, 794551494 Code(s): O23.43 - UNSP INFCT OF URINARY TRACT IN , THIRD TRIMESTER Status: Acute Current Visit: Yes - Problem List Review Problem List Initiated/Reviewed/Updated: Yes - My Orders Last 24 Hours: My Active Orders 02/05/18 07:30 Cephalexin [Keflex] 500 mg PO Q6HR 02/05/18 13:00 Shower [May Shower] [RC] ASDIRECTED 02/05/18 22:00 Ibuprofen [Motrin] 600 mg PO Q6H PRN - Assessment Assessment:: POD2 from for NRFHT and thick meconium Doing well. Luke out later today. Encourage ambulation and breast feeding. UTI - change to keflex - Plan Plan:: POD2. Likely discharge tomorrow.
--- NOTE | 2018-02-06 07:49 | PCM.DCSUM1 ---
Discharge Summary - Hospital Course Brief History: Admitted with some heart rate issues. Had a few decelerations so moved toward induction with garcia bulb and had NRFHT, arom with meconium and then eventual for NRFHT. - Discharge Data Discharge Date: 02/06/18 Discharge Disposition: Home, Self-Care 01 Condition: Good - Discharge Diagnosis/Problem(s) (1) 37 weeks gestation of SNOMED Code(s): 57925479 ICD Code: Z3A.37 - 37 WEEKS GESTATION OF Status: Acute Current Visit: Yes (2) UTI (urinary tract infection) in in third trimester SNOMED Code(s): 172605049, 719776142 ICD Code: O23.43 - UNSP INFCT OF URINARY TRACT IN , THIRD TRIMESTER Status: Acute Current Visit: Yes - Patient Summary/Data Operative Procedure(s) Performed: Primary low transverse section - Patient Instructions Diet: Usual Diet as Tolerated Activity: No Strenuous Activities Activity, Other: pelvic rest Driving: Do Not Drive Showering/Bathing: May Shower Wound/Incision Care: Keep Operative Site/Wound Site Clean and Dry, Change Dressing Daily, Do NOT Change Dressing Notify Provider of: Fever, Increased Pain, Swelling and Redness, Drainage, Nausea and/or Vomiting - Discharge Plan Prescriptions/Med Rec: Cephalexin [Keflex] 500 mg PO Q6HR #20 cap Acetaminophen/HYDROcodone [[place] 325-5 MG] 1 tab PO Q6H PRN 30 Days tablet PRN Reason: Pain (Moderate 4-6) Ibuprofen [IJD: Ibuprofen] 600 mg PO Q6H PRN #60 tablet PRN Reason: mild pain or fever Home Medications: Home Meds Levothyroxine 75 mcg PO ACBREAKFAST 02/04/18 [History] Acetaminophen/HYDROcodone [[place] 325-5 MG] 1 tab PO Q6H PRN 30 Days tablet [Rx] Cephalexin [Keflex] 500 mg PO Q6HR #20 cap 02/06/18 [Rx] Ibuprofen [IJD: Ibuprofen] 600 mg PO Q6H PRN #60 tablet 02/06/18 [Rx] Referrals: Juan Ochoa MD [Primary Care Provider] - (1-3 weeks) - Discharge Summary/Plan Comment DC Time >30 min.: No - Patient Data Vitals - Most Recent: Last Vital Signs Temp 36.1 C 02/06/18 02:26 Pulse 90 02/05/18 21:27 Resp 16 02/06/18 02:26 BP 95/53 L 02/06/18 02:26 Pulse Ox 100 02/06/18 02:26 Weight - Most Recent: 80.286 kg I&O - Last 24 hours: Intake & Output 02/05/18 02/06/18 02/06/18 22:59 06:59 14:59 Intake Total 890 950 Output Total 1000 Balance -110 950 Med Orders - Current: Current Medications Hydrocodone Bitart/Acetaminophen ([place] 325-5 Mg) 2 tab PO Q6H PRN PRN Reason: Pain (severe 7-10) Last Admin: 02/06/18 02:18 Dose: 2 tab Hydrocodone Bitart/Acetaminophen ([place] 325-5 Mg) 1 tab PO Q6H PRN PRN Reason: Pain (moderate 4-6) Cephalexin (Keflex) 500 mg PO Q6HR [facility] Last Admin: 02/06/18 02:18 Dose: 500 mg Diphenhydramine HCl (Benadryl) 25 mg IVPUSH Q6H PRN PRN Reason: Pruritis Diphenhydramine HCl (Benadryl) 25 mg IVPUSH Q6H PRN PRN Reason: Itching or Nausea Docusate Sodium (Colace) 100 mg PO Q12H PRN PRN Reason: Constipation Last Admin: 02/06/18 02:18 Dose: 100 mg Emollient Ointment (Lansinoh Hpa) 0 gm TOP ASDIRECTED PRN PRN Reason: Sore Nipples Ephedrine Sulfate (Ephedrine Sulfate) 5 mg IVPUSH SEECOMMENT PRN PRN Reason: Other Fentanyl (Sublimaze) 50 mcg IVPUSH Q5M PRN PRN Reason: Pain Ibuprofen (Motrin) 600 mg PO Q6H PRN PRN Reason: mild pain or fever Last Admin: 02/05/18 22:03 Dose: 600 mg Levothyroxine Sodium (Levothyroxine) 75 mcg PO ACBREAKFAST [facility] Last Admin: 02/05/18 06:08 Dose: Not Given Meperidine HCl (Demerol) 12.5 mg IVPUSH ONETIME PRN PRN Reason: Shivering Naloxone HCl (Narcan) 0.1 mg IVPUSH SEECOMMENT PRN PRN Reason: Respiratory Depression Ondansetron HCl (Zofran) 4 mg IVPUSH ONETIME PRN PRN Reason: Nausea/Vomiting Discontinued Medications Bupivacaine HCl (Marcaine 0.5%) Confirm Administered Dose 30 ml .ROUTE .STK-MED ONE Stop: 02/04/18 22:16 Last Admin: 02/04/18 21:22 Dose: 20 ml Cefazolin Sodium (Ancef) Confirm Administered Dose 2 gm .ROUTE .STK-MED ONE Stop: 02/04/18 20:45 Citric Acid/Sodium Citrate (Bicitra Solution) 30 ml PO ONETIME ONE Stop: 02/04/18 20:57 Last Admin: 02/04/18 20:59 Dose: 30 ml Citric Acid/Sodium Citrate (Bicitra Solution) Confirm Administered Dose 30 ml .ROUTE .STK-MED ONE Stop: 02/04/18 20:56 Last Admin: 02/05/18 01:27 Dose: Not Given Diphenhydramine HCl (Benadryl) 25 mg IVPUSH Q6H PRN PRN Reason: Pruritis Ephedrine Sulfate (Ephedrine Sulfate) 5 mg IVPUSH ASDIRECTED PRN PRN Reason: Hypotension Fentanyl (Sublimaze) 100 mcg EPIDUR Q3H PRN PRN Reason: Pain Last Admin: 02/04/18 19:45 Dose: 100 mcg Fentanyl/Bupivacaine HCl (Fentanyl/Bupivacaine/Ns 2 Mcg-0.125% 100 Ml) 100 ml EPIDUR ASDIRECTED [facility] Last Admin: 02/04/18 19:46 Dose: 100 ml Hydroxyzine HCl (Atarax) 25 mg PO BEDTIME [facility] Last Admin: 02/05/18 01:27 Dose: Not Given Lactated Ringer's (Ringers, Lactated) 1,000 mls @ 500 mls/hr IV ASDIRECTED [facility] Stop: 02/04/18 08:44 Last Infusion: 02/04/18 12:15 Dose: Infused Lactated Ringer's (Ringers, Lactated) 1,000 mls @ 125 mls/hr IV .ONCE [facility] Last Infusion: 02/04/18 12:15 Dose: Infused Cefoxitin Sodium 2 gm/ Premix 50 mls @ 100 mls/hr IV ONETIME ONE Stop: 02/04/18 09:46 Last Infusion: 02/04/18 12:16 Dose: Infused Lactated Ringer's (Ringers, Lactated) 1,000 mls @ 125 mls/hr IV ASDIRECTED [facility] Last Admin: 02/04/18 19:58 Dose: 125 mls/hr Oxytocin/Lactated Ringer's (Pitocin In Lr 10 Units/1,000 Ml) Confirm Administered Dose 10 unit in 1,000 mls @ as directed IV .STK-MED ONE Stop: 02/04/18 20:07 Last Admin: 02/05/18 01:26 Dose: Not Given Oxytocin/Lactated Ringer's (Pitocin In Lr 10 Units/1,000 Ml) 10 unit in 1,000 mls @ 12 mls/hr IV TITRATE [facility]; Protocol Last Titration: 02/04/18 20:30 Dose: 0 munits/min, 0 mls/hr Lactated Ringer's (Ringers, Lactated) 1,000 mls @ 125 mls/hr IV ASDIRECTED [facility] Dextrose/Lactated Ringer's (Dextrose 5%-Lactated Ringers) 1,000 mls @ 125 mls/ hr IV ASDIRECTED [facility] Stop: 02/05/18 06:07 Last Admin: 02/04/18 23:32 Dose: 125 mls/hr Ibuprofen (Motrin) 600 mg PO Q6H PRN PRN Reason: mild pain or fever Ketorolac Tromethamine (Toradol) Confirm Administered Dose 30 mg .ROUTE .STK- MED ONE Stop: 02/04/18 21:46 Ketorolac Tromethamine (Toradol) 30 mg IVPUSH Q6H [facility] Stop: 02/05/18 10:01 Last Admin: 02/05/18 01:28 Dose: Not Given Ketorolac Tromethamine (Toradol) 30 mg IVPUSH Q6H [facility] Stop: 02/05/18 16:01 Last Admin: 02/05/18 15:51 Dose: 30 mg Lidocaine/Epinephrine (Xylocaine-Mpf 2%-Epi 1:200,000) Confirm Administered Dose 20 ml .ROUTE .STK-MED ONE Stop: 02/04/18 20:45 Meperidine HCl (Demerol) Confirm Administered Dose 50 mg .ROUTE .STK-MED ONE Stop: 02/04/18 21:39 Metoclopramide HCl (Reglan) 10 mg IVPUSH ONETIME ONE Stop: 02/04/18 20:45 Last Admin: 02/04/18 20:59 Dose: 10 mg Morphine Sulfate (Duramorph Pf) Confirm Administered Dose 10 mg .ROUTE .STK-MED ONE Stop: 02/04/18 21:40 Nitrofurantoin Macrocrystals (Macrobid) 100 mg PO BID [facility] Last Admin: 02/05/18 01:27 Dose: Not Given Nitrofurantoin Macrocrystals (Macrobid) 100 mg PO BID [facility] Ondansetron HCl (Zofran) 4 mg IVPUSH Q4H PRN PRN Reason: Nausea/Vomiting Ondansetron HCl (Zofran) 4 mg IVPUSH ONETIME PRN PRN Reason: Nausea/Vomiting Ondansetron HCl (Zofran) Confirm Administered Dose 4 mg .ROUTE .STK-MED ONE Stop: 02/04/18 20:44 Oxytocin (Pitocin) Confirm Administered Dose 10 unit .ROUTE .STK-MED ONE Stop: 02/04/18 20:44 Phenazopyridine HCl (Urinary Pain Relief) 190 mg PO TIDPC [facility] Last Admin: 02/05/18 01:26 Dose: Not Given Phenylephrine HCl (Phenylephrine In Ns 100 Mcg/Ml) Confirm Administered Dose 1 mg .ROUTE .STK-MED ONE Stop: 02/04/18 21:14 Sodium Bicarbonate (Sodium Bicarbonate 8.4%) Confirm Administered Dose 50 meq .ROUTE .STK-MED ONE Stop: 02/04/18 20:45 Sodium Chloride (Saline Flush) 10 ml FLUSH ASDIRECTED PRN PRN Reason: Keep Vein Open Terbutaline Sulfate (Brethine) 0.25 mg SUBCUT Q30M [facility] Stop: 02/04/18 07:46 Last Admin: 02/04/18 12:17 Dose: Not Given
[2018-02-06] MEDS: Levothyroxine 75 MCG Tab PO SCH (08:50)
== END 2018-02-06 11:45 | disposition home or self-care (01) | DRG 765 ==
LOC: JD.OB 05:44 → JD.OBCHECK 05:44 → JD.OB 15:23 → OBSVTOIN 21:25 → JD.OB 21:34
PROVIDERS: ADMIT Obstetrics & Gynecology; ATTEND Obstetrics & Gynecology
PROC: 10D00Z1 Extraction of Products of Conception, Low, Open Approach (ICD-10-PCS; principal; 2018-02-04)
PROC: 00HU33Z Insertion of Infusion Device into Spinal Canal, Percutaneous Approach (ICD-10-PCS; 2018-02-04)
PROC: 3E0R3BZ Introduction of Anesthetic Agent into Spinal Canal, Percutaneous Approach (ICD-10-PCS; 2018-02-04)
DX: O75.3 Other infection during labor (principal); N39.0 Urinary tract infection, site not specified; O62.1 Secondary uterine inertia; O77.0 Labor and delivery complicated by meconium in amniotic fluid; Z3A.37 37 weeks gestation of pregnancy; Z37.0 Single live birth
CPT/HCPCS: 01967; 01968; 36415; 51702; 59025; 76816; 76819; 76819-26; 81001; 85025; 86850; 86900; 86901; 87086; 94762; A9270-GY; J0690; J0694; J1885; J2175; J2270; J2405; J2590; J2765; J3010; J3105; J7042; J7120